=== PATIENT | male | born 1950 | race Caucasian/White ===

== ENCOUNTER 2019-01-01 11:36 | Emergency (ER) | payer BC, MEDICARE ==
[2019-01-01] MEDS ORDERED: ASPIRIN 81 MG CHEWABLE CTB PO STA (11:41)
[2019-01-01] MEDS ORDERED: NITROGLYCERIN 0.4 MG TAB SL PRN (11:41)
[2019-01-01] MEDS ORDERED: SODIUM CHLORIDE 0.9% FLUSH 10 ML SOL IV PRN (11:41)
[2019-01-01] MEDS ORDERED: ASPIRIN 81 MG CHEWABLE CTB ONE (11:42)
[2019-01-01 11:59] LABS: BASOPHILS % (AUTO) 1 % (0-3); EOSINOPHILS % (AUTO) 0 % (0-9); HEMATOCRIT 47 % (39-53); HEMOGLOBIN 15.4 gm/dl (13.5-17.7); LYMPHOCYTES % (AUTO) 12.1 % (10-50); MEAN CORPUSCULAR HEMOGLOBIN 32.1 pg (27.0-32.0); MEAN CORPUSCULAR VOLUME 97 fL (80-100)
[2019-01-01 12:00] VITALS: TEMP 98.4
[2019-01-01 12:02] LABS: BLOOD UREA NITROGEN 22 mg/dl (7-18); CALCIUM 9.5 mg/dl (8.5-10.1); CARBON DIOXIDE 29.4 mEq/L (21-32); CHLORIDE 104 mMol/L (98-107); CREATININE 1.02 mg/dl (0.80-1.30); GLUCOSE 148 mg/dl (74-106); POTASSIUM 3.7 mMol/L (3.5-5.1); SODIUM 140 mMol/L (136-145); TROP I < 0.017 ng/ml (0.000-0.056)
[2019-01-01 15:09] VITALS: BP 95/62; PULSE 68; RESP 14; O2SAT 93
== END 2019-01-01 12:41 | disposition home or self-care (01) | DRG 392 ==
LOC: ED 11:36
DX: K29.70 Gastritis, unspecified, without bleeding (principal)
CPT/HCPCS: 71045; 80048; 84484; 85025; 93005; 99283; 99284